=== PATIENT | female | born 1955 | race Hispanic/Latino ===

== ENCOUNTER → 2020-03-08 | Outpatient (CLI) | payer OTHER ==
--- NOTE | 2020-03-27 08:43 | REP ---
DATE: 03/08/2020 LEFT KNEE: HSTORY: Pain after a twisting injury. REPORT: 5 views of the left knee performed. No acute fracture or dislocation is seen. There is mild medial joint space narrowing. There is mild spurring of the superior pole of the patella. There is a moderate joint effusion. Vascular calcifications were seen posteriorly. IMPRESSION: Mild degenerative changes without acute fracture or dislocation. Moderate joint effusion. MTDD
== END ==
LOC: M WUC 18:11
PROVIDERS: ATTEND Nurse Practitioner Family
DX: M25.762 Osteophyte, left knee (principal)

== ENCOUNTER → 2020-10-22 | Outpatient (CLI) | payer BC ==
[~2020-10-22] MED LIST: ISOVUE-300 61% 50ML VIAL As Ordered ONE; LIDOCAINE 1% MDV 20ML VIAL As Ordered ONE; TRIAMCINOLONE ACETONIDE SUSP 40 MG/ML VIAL (J3301) As Ordered ONE
--- NOTE | 2020-10-22 17:13 | REP ---
INDICATION: RT SHOULDER OA W/ PAIN. COMPARISON: None. TECHNIQUE: The procedure was performed under the direct supervision of Dr. Iyer. The benefits and risks including but not limited to pain infection and bleeding and anaphylaxis were explained to the patient and informed consent was obtained. The right glenohumeral joint space was localized using fluoroscopic guidance. The skin was prepped and draped in a sterile fashion. 1% lidocaine was used as a local anesthetic. Using fluoroscopic guidance, and last image hold technology, a 22-gauge spinal needle was inserted and advanced into the joint. 1 ml of Isovue-300 was injected to verify placement. 6 ml of a solution containing less than 6 ml of 1% Xylocaine and 1 mL of Kenalog 40 mg was injected. The needle was then removed. The patient tolerated the procedure well and there were no immediate complications. Less than 6 seconds of fluoro time was utilized for this procedure. FINDINGS: None IMPRESSION: Fluoro guidance for right shoulder injection. <Electronically signed by Shen Hameed > 10/22/20 1605 <Electronically signed by Roger Iyer > 10/22/20 [id number]
== END ==
LOC: M RADPRO 10:50
PROVIDERS: ATTEND Physician Assistant
DX: M19.011 Primary osteoarthritis, right shoulder (principal); M25.511 Pain in right shoulder
CPT/HCPCS: 20610; 77002; J3301; Q9967

== ENCOUNTER 2020-12-09 18:11 | Emergency (ER) | payer BC ==
[~2020-12-09] VITALS: Ht 162.6 cm; Wt 100.9 kg
[2020-12-09] MEDS ORDERED: SUPECAP14 PO (18:32)
[2020-12-09] MEDS ORDERED: A-10CAP2 PO (18:32)
[2020-12-09] MEDS ORDERED: VITA200031 PO (18:32)
[2020-12-09] MEDS ORDERED: JARD1TAB PO (18:32)
[2020-12-09] MEDS ORDERED: LOSA100T50 PO (18:32)
[2020-12-09] MEDS ORDERED: NEXI20CA PO (18:32)
[2020-12-09] MEDS ORDERED: TOPR50TA PO (18:32)
[2020-12-09] MEDS ORDERED: MULT-90 PO (18:32)
[2020-12-09] MEDS ORDERED: LEVO50TA5 PO (18:32)
[2020-12-09] MEDS ORDERED: TRES100I SC (18:32)
[2020-12-09] MEDS ORDERED: CHRO400T4 PO (18:32)
[2020-12-09] MEDS ORDERED: LORA-674 PO (18:32)
[2020-12-09] MEDS ORDERED: TRUL0.5I SC (18:32)
[2020-12-09 20:19] VITALS: BP 150/71
== END 2020-12-09 20:23 | disposition home or self-care (01) ==
LOC: M ED 18:11
DX: S76.311A Strain of muscle, fascia and tendon of the posterior muscle group at thigh level, right thigh, initial encounter (principal); W10.9XXA Fall (on) (from) unspecified stairs and steps, initial encounter; Z79.899 Other long term (current) drug therapy; Z88.1 Allergy status to other antibiotic agents; Z88.8 Allergy status to other drugs, medicaments and biological substances

== ENCOUNTER → 2021-02-04 | Outpatient (CLI) | payer BC, MEDICARE, OTHER ==
[~2021-02-04] MED LIST changes: +A-10CAP2 PO; +CHRO400T4 PO; -ISOVUE-300 61% 50ML VIAL As Ordered ONE; +JARD1TAB PO; +LEVO50TA5 PO; -LIDOCAINE 1% MDV 20ML VIAL As Ordered ONE; +LORA-674 PO; +LOSA100T50 PO; +MULT-90 PO; +NEXI20CA PO; +SUPECAP14 PO; +TOPR50TA PO; +TRES100I SC; -TRIAMCINOLONE ACETONIDE SUSP 40 MG/ML VIAL (J3301) As Ordered ONE; +TRUL0.5I SC; +VITA200031 PO
--- NOTE | 2021-02-04 14:27 | REPMRS ---
Patient History The patient states she has not had a clinical breast exam in over a year. Patient is postmenopausal. No known family history of cancer. No Hormone Replacement Therapy Covid vaccines 07/2020 left arm. 08/2020 left arm. Patient states no breast complaints today. Patient has signed MRS History Sheet. Digital Woman Screen Mammo: February 04, 2021 - Exam #: [id number] Bilateral CC and MLO view(s) were taken. Technologist: RT Davie Prior study comparison: December 20, 2014, bilateral digital mammo screening bilat, performed at Outside Facility. FINDINGS: There are scattered fibroglandular densities. The Volpara volumetric breast density category is:B. There has been no change in the appearance of the mammogram from the prior studies. There is a mild amount of scattered fibroglandular density which is fairly symmetric. There is no interval development of dominant mass, architectural distortion, or grouped microcalcification suggestive of malignancy. 3-D tomosynthesis shows no additional findings. Assessment: BI-RADS/ACR category 1 mammogram. Negative Mammogram. Recommendation Routine screening mammogram of both breasts in 1 year (for women over age 40). This patient's [facility] Lifetime Breast Cancer Risk is estimated at 7.0 %. This mammogram was interpreted with the aid of an FDA-approved computer-aided dectection system. Electronically Signed By: Haseeb Silverio MD 02/04/21 [id number]
== END ==
LOC: M WHC 12:54
PROVIDERS: ATTEND Internal Medicine
DX: Z12.31 Encounter for screening mammogram for malignant neoplasm of breast (principal)

== ENCOUNTER 2021-02-10 09:56 | Outpatient (RCR) | payer BC, MEDICARE | END 2021-02-11 | LOC: M PT 09:56 | PROVIDERS: ATTEND Physician Assistant | DX: M19.011 Primary osteoarthritis, right shoulder (principal); M75.41 Impingement syndrome of right shoulder; S16.1XXA Strain of muscle, fascia and tendon at neck level, initial encounter ==

== ENCOUNTER 2021-03-10 10:45 | Outpatient (RCR) | payer BC, MEDICARE | END 2021-03-13 | LOC: M PT 10:45 | PROVIDERS: ATTEND Physician Assistant | DX: M19.011 Primary osteoarthritis, right shoulder (principal); M75.41 Impingement syndrome of right shoulder; S16.1XXD Strain of muscle, fascia and tendon at neck level, subsequent encounter; W18.30XD Fall on same level, unspecified, subsequent encounter; Y92.009 Unspecified place in unspecified non-institutional (private) residence as the place of occurrence of the external cause ==

== ENCOUNTER → 2021-03-18 | Outpatient (REF) | payer BC, MEDICARE | LOC: M SFHCWAGY 15:08 | PROVIDERS: ATTEND Advanced Practice Midwife | DX: Z12.4 Encounter for screening for malignant neoplasm of cervix (principal) | CPT/HCPCS: 87624; G0123 ==

== ENCOUNTER → 2021-10-01 | Outpatient (CLI) | payer BC, MEDICARE ==
[~2021-10-01] MED LIST changes: +LOSA100T45 PO; -LOSA100T50 PO
== END ==
LOC: M WUC 13:12
PROVIDERS: ATTEND Physician Assistant
DX: S39.012A Strain of muscle, fascia and tendon of lower back, initial encounter (principal)

== ENCOUNTER → 2022-03-02 | Outpatient (CLI) | payer MEDICARE | LOC: M LAB 12:29 | PROVIDERS: ATTEND Physical Medicine & Rehabilitation | DX: M47.892 Other spondylosis, cervical region (principal) ==

== ENCOUNTER → 2022-03-18 | Outpatient (CLI) | payer MEDICARE | LOC: M WHC 10:48 | PROVIDERS: ATTEND Internal Medicine | DX: Z12.31 Encounter for screening mammogram for malignant neoplasm of breast (principal); Z13.820 Encounter for screening for osteoporosis; M85.89 Other specified disorders of bone density and structure, multiple sites ==

== ENCOUNTER 2022-10-20 13:09 | Emergency (ER) | payer MEDICARE ==
[~2022-10-20] VITALS: Ht 162.6 cm; Wt 98.8 kg
[~2022-10-20 13:09] MED LIST changes: -LOSA100T45 PO; +LOSA100T46 PO
[2022-10-20] MEDS ORDERED: METF-838 (13:27)
[2022-10-20] MEDS ORDERED: ROSU5TAB5 (13:27)
[2022-10-20] MEDS ORDERED: HUMA100I5 (13:27)
[2022-10-20] MEDS ORDERED: GABA-1171 (13:27)
[2022-10-20] MEDS ORDERED: BOOSTRIX VACCINE (TETANUS/DIPHTH/ACEL. PERTUSSIS) 0.5ML SYR IM.IMMUN ONE (15:15)
[2022-10-20] MEDS ORDERED: ACETAMINOPHEN 500 MG TAB PO ONE (15:15)
[2022-10-20] MEDS ORDERED: BACI500O8 TOP (16:10)
[2022-10-20 16:14] VITALS: BP 141/76
== END 2022-10-20 16:19 | disposition home or self-care (01) ==
LOC: EDBD 13:09 → M ED 13:09
DX: S00.03XA Contusion of scalp, initial encounter (principal); S50.02XA Contusion of left elbow, initial encounter; S13.4XXA Sprain of ligaments of cervical spine, initial encounter; W01.0XXA Fall on same level from slipping, tripping and stumbling without subsequent striking against object, initial encounter; I10 Essential (primary) hypertension; E11.9 Type 2 diabetes mellitus without complications; E03.9 Hypothyroidism, unspecified; Z88.1 Allergy status to other antibiotic agents; Z88.2 Allergy status to sulfonamides; Z88.6 Allergy status to analgesic agent; Y92.009 Unspecified place in unspecified non-institutional (private) residence as the place of occurrence of the external cause; Z79.4 Long term (current) use of insulin; Z79.811 Long term (current) use of aromatase inhibitors; Z79.810 Long term (current) use of selective estrogen receptor modulators (SERMs); Z79.899 Other long term (current) drug therapy; Z23 Encounter for immunization

== ENCOUNTER → 2022-12-08 | Outpatient (CLI) | payer MEDICARE ==
[~2022-12-08] MED LIST changes: +BACI500O8 TOP; +E-Z-GAS II EFFERVESCENT PACKET (SODIUM BICARB./CITRIC ACID/SIMETHICONE) As Ordered ONE; +E-Z-HD 98% w/w 340GM SUSP BTL As Ordered ONE; +E-Z-PAQUE 96% w/w SUSP 176GM BTL As Ordered ONE; +GABA-1171; +HUMA100I5; +METF-838; +ROSU5TAB5
== END ==
LOC: M RAD 10:02
PROVIDERS: ATTEND Physician Assistant Medical
DX: R13.10 Dysphagia, unspecified (principal)

== ENCOUNTER → 2023-01-06 | Outpatient (REF) | payer MEDICARE, OTHER ==
[~2023-01-06] MED LIST changes: +CVS1CAP2 PO; -E-Z-GAS II EFFERVESCENT PACKET (SODIUM BICARB./CITRIC ACID/SIMETHICONE) As Ordered ONE; -E-Z-HD 98% w/w 340GM SUSP BTL As Ordered ONE; -E-Z-PAQUE 96% w/w SUSP 176GM BTL As Ordered ONE; -GABA-1171; +GABA-1171 PO; +INSUH10VL SC; -METF-838; +METF-838 PO; +METF500T13 PO; +PANT20TA6 PO; +POLY17PO10 PO; -ROSU5TAB5; +ROSU5TAB5 PO; +SYST1SOL4 OU
[2023-01-06 17:05] LABS: APPEARANCE, URINE CLEAR (CLEAR); BACTERIA, URINE AUTO NEGATIVE (NEGATIVE); BILIRUBIN, URINE AUTO NEGATIVE (NEGATIVE); BLOOD, URINE BLOOD NEGATIVE (NEGATIVE); COLOR, URINE STRAW (YELLOW); GLUCOSE, URINE (UA) AUTO 3+ mg/dL (NEGATIVE); KETONE, URINE AUTO NEGATIVE (NEGATIVE); LEUKOCYTE ESTERASE, URINE AUTO NEGATIVE (NEGATIVE); NITRITE, URINE AUTO NEGATIVE (NEGATIVE); PROTEIN, URINE AUTO NEGATIVE (NEGATIVE); RBC, URINE AUTO 0 /HPF (0-3); SPECIFIC GRAVITY URINE AUTO 1.031 (1.002-1.035); SQUAMOUS EPITHELIAL CELL UR AU 0 /HPF (0-6); UROBILINOGEN, URINE AUTO 0.2 mg/dL (0.0-2.0); WBC, URINE AUTO 0 /HPF (0-3)
== END ==
LOC: M LAB REF 16:11
PROVIDERS: ATTEND Internal Medicine
DX: N39.0 Urinary tract infection, site not specified (principal)

== ENCOUNTER → 2023-01-11 | Outpatient (CLI) | payer MEDICARE, OTHER ==
[2023-01-11 12:16] LABS: PLATELET COUNT, AUTOMATED 320 10^3/uL (150-450)
[2023-01-11 12:39] LABS: INR 0.97; PROTHROMBIN TIME 13.1 SECONDS (12.5-14.5)
[2023-01-11 12:40] LABS: PARTIAL THROMBOPLASTIN TIME 27.5 SECONDS (24.8-34.2)
[2023-01-11 12:59] LABS: COLLAGEN EPINEPHRINE 86 SECONDS (74-162)
== END ==
LOC: M LAB 11:44
PROVIDERS: ATTEND Physician Assistant
DX: Z01.818 Encounter for other preprocedural examination (principal)

== ENCOUNTER → 2023-04-20 | Outpatient (CLI) | payer MEDICARE, OTHER ==
[~2023-04-20] MED LIST changes: +ISOVUE-300 61% 100ML VIAL As Ordered ONE; +LIDOCAINE 1% MDV 20ML VIAL As Ordered ONE; +LORA-1041 PO; -LORA-674 PO; +TRIAMCINOLONE ACETONIDE SUSP 40MG/ML 1ML VIAL As Ordered ONE
== END ==
LOC: M RAD 14:16
PROVIDERS: ATTEND Physician Assistant
DX: M16.12 Unilateral primary osteoarthritis, left hip (principal)
CPT/HCPCS: 20610; 77002; J3301; Q9967

== ENCOUNTER → 2023-04-22 | Outpatient (CLI) | payer MEDICARE, OTHER ==
[~2023-04-22] MED LIST changes: -ISOVUE-300 61% 100ML VIAL As Ordered ONE; -LIDOCAINE 1% MDV 20ML VIAL As Ordered ONE; -TRIAMCINOLONE ACETONIDE SUSP 40MG/ML 1ML VIAL As Ordered ONE
== END ==
LOC: M WHC 07:49
PROVIDERS: ATTEND Internal Medicine
DX: Z12.31 Encounter for screening mammogram for malignant neoplasm of breast (principal)

== ENCOUNTER → 2023-08-20 | Outpatient (REF) | payer MEDICARE, OTHER ==
[2023-08-20 19:21] LABS: CREATININE, URINE 71.3 MG/DL
== END ==
LOC: M LAB REF 17:07
PROVIDERS: ATTEND Nurse Practitioner Family
DX: E11.65 Type 2 diabetes mellitus with hyperglycemia (principal)

== ENCOUNTER 2023-09-09 00:12 | Emergency (ER) | payer MEDICARE, OTHER ==
[~2023-09-09] VITALS: Ht 162.6 cm; Wt 95.7 kg
[2023-09-09 00:47] LABS: BASO # 0.1 10^3/uL (0.0-0.2); BASO % 0.5 % (0.0-1.0); EOS # 1.7 10^3/uL (0.0-0.5); EOS % 12.8 % (0.0-3.0); HEMATOCRIT 43.4 % (36.0-47.0); HEMOGLOBIN 14.3 g/dl (12.0-15.5); LYMPH # 2.7 10^3/uL (1.5-5.0); LYMPH % 19.8 % (24.0-44.0); MEAN CORPUSCULAR HEMOGLOBIN 30.5 pg (27.0-33.0); MEAN CORPUSCULAR HGB CONC 32.9 g/dl (32.0-36.5); MEAN CORPUSCULAR VOLUME 92.5 fl (80.0-96.0); MONO # 0.8 10^3/uL (0.0-0.8); MONO % 5.9 % (2.0-8.0); NEUTROPHILS # 8.2 10^3/uL (1.5-8.5); NEUTROPHILS % 60.7 % (36.0-66.0); PLATELET COUNT, AUTOMATED 330 10^3/uL (150-450); RED BLOOD COUNT 4.69 10^6/uL (4.00-5.40); WHITE BLOOD COUNT 13.6 10^3/uL (4.0-10.0)
[2023-09-09 01:11] LABS: CK-MB VALUE MASS < 1.0 NG/ML (<3.6)
[2023-09-09 01:12] LABS: LIPASE 45 U/L (12-53)
[2023-09-09 01:14] LABS: ALBUMIN 3.8 G/DL (3.2-5.2); ALKALINE PHOSPHATASE 92 U/L (46-116); ALT/SGPT 14 U/L (7.0-40); AST/SGOT 15 U/L (<34); BILIRUBIN,DIRECT < 0.1 MG/DL (<0.4); BILIRUBIN,TOTAL 0.2 MG/DL (0.3-1.2); BLOOD UREA NITROGEN 28 MG/DL (9-23); CALCIUM LEVEL 10.3 MG/DL (8.3-10.6); CARBON DIOXIDE LEVEL 28 MMOL/L (20-31); CHLORIDE LEVEL 105 MMOL/L (98-107); CPK CREATINE PHOSPHOKINASE 153 U/L (34-145); CREATININE FOR GFR 0.93 MG/DL (0.55-1.30); GLOMERULAR FILTRATION RATE > 60.0 (>45); GLUCOSE, FASTING 150 MG/DL (74-106); MB/CK RELATIVE INDEX 0.65 (< OR =4); POTASSIUM SERUM 4.2 MMOL/L (3.5-5.1); SODIUM LEVEL 140 MMOL/L (136-145); TOTAL PROTEIN 6.9 G/DL (5.7-8.2)
[2023-09-09] MEDS ORDERED: ISOVUE-370 76% 100ML VIAL As Ordered ONE (01:49)
[2023-09-09] MEDS: KETOROLAC 30 MG/ML 1ML VIAL IV ONE (01:55)
[2023-09-09] MEDS: MAALOX 30 ML SUSP *UDC PO ONE (01:55)
[2023-09-09 03:00] LABS: CK-MB VALUE MASS 1.1 NG/ML (<3.6)
[2023-09-09 03:01] LABS: MB/CK RELATIVE INDEX 0.94 (< OR =4)
[2023-09-09] MEDS ORDERED: NAPR-837 PO (03:15)
[2023-09-09 03:21] VITALS: BP 133/62; TEMP 97.3; O2SAT 95
== END 2023-09-09 03:31 | disposition home or self-care (01) ==
LOC: M ED 00:12
DX: R10.13 Epigastric pain (principal); I49.1 Atrial premature depolarization; E11.9 Type 2 diabetes mellitus without complications; I10 Essential (primary) hypertension; K21.9 Gastro-esophageal reflux disease without esophagitis; E03.9 Hypothyroidism, unspecified; Z88.1 Allergy status to other antibiotic agents; Z88.5 Allergy status to narcotic agent; Z88.8 Allergy status to other drugs, medicaments and biological substances; Z91.040 Latex allergy status; Z79.891 Long term (current) use of opiate analgesic; Z79.4 Long term (current) use of insulin; Z79.811 Long term (current) use of aromatase inhibitors; Z79.899 Other long term (current) drug therapy
CPT/HCPCS: 71045; 71275; 74177; 80048; 80076; 82550; 82553; 83690; 84484; 85025; 93005; 93041; 94760; 96374; 99285; J1885; Q9967

== ENCOUNTER → 2023-11-05 | Outpatient (CLI) | payer MEDICARE, OTHER ==
[~2023-11-05] MED LIST changes: +NAPR-837 PO; +ROSU5TAB40 PO; -ROSU5TAB5 PO
== END ==
LOC: M SOG 08:07
PROVIDERS: ATTEND Physician Assistant
DX: M25.561 Pain in right knee (principal)

== ENCOUNTER → 2023-12-06 | Outpatient (CLI) | payer MEDICARE, OTHER | LOC: M SOG 13:28 | PROVIDERS: ATTEND Physician Assistant | DX: M25.562 Pain in left knee (principal) ==

== ENCOUNTER 2024-02-29 18:52 | Emergency (ER) | payer MEDICARE, OTHER ==
[~2024-02-29] VITALS: Ht 162.6 cm; Wt 93.1 kg
[~2024-02-29 18:52] MED LIST changes: +DULO1CAP4 PO; +JARD1TAB3 PO; +LEVO75TA4 PO; +MYRB50TA PO; +SEMA1PEN2 SC; +XIID5DRO OU
[2024-02-29 19:43] LABS: BASO # 0.1 10^3/uL (0.0-0.2); BASO % 0.8 % (0.0-1.0); EOS # 0.4 10^3/uL (0.0-0.5); HEMOGLOBIN 14.1 g/dl (12.0-15.5); LYMPH # 3.3 10^3/uL (1.5-5.0); LYMPH % 27.7 % (24.0-44.0); MEAN CORPUSCULAR HEMOGLOBIN 30.5 pg (27.0-33.0); MEAN CORPUSCULAR HGB CONC 32.8 g/dl (32.0-36.5); MEAN CORPUSCULAR VOLUME 92.9 fl (80.0-96.0); MONO # 0.8 10^3/uL (0.0-0.8); MONO % 6.4 % (2.0-8.0); NEUTROPHILS # 7.3 10^3/uL (1.5-8.5); NEUTROPHILS % 61.7 % (36.0-66.0); PLATELET COUNT, AUTOMATED 368 10^3/uL (150-450); RED BLOOD COUNT 4.63 10^6/uL (4.00-5.40); WHITE BLOOD COUNT 11.8 10^3/uL (4.0-10.0)
[2024-02-29 20:15] LABS: LIPASE 55 U/L (12-53)
[2024-02-29 20:17] LABS: ALBUMIN 3.8 G/DL (3.2-5.2); ALKALINE PHOSPHATASE 87 U/L (46-116); ALT/SGPT 18 U/L (7.0-40); AST/SGOT 16 U/L (<34); BILIRUBIN,DIRECT 0.1 MG/DL (<0.4); BILIRUBIN,TOTAL 0.3 MG/DL (0.3-1.2); BLOOD UREA NITROGEN 18 MG/DL (9-23); CALCIUM LEVEL 10.4 MG/DL (8.3-10.6); CARBON DIOXIDE LEVEL 26 MMOL/L (20-31); CHLORIDE LEVEL 106 MMOL/L (98-107); CREATININE FOR GFR 0.72 MG/DL (0.55-1.30); GLOMERULAR FILTRATION RATE > 60.0 (>45); GLUCOSE, FASTING 206 MG/DL (74-106); POTASSIUM SERUM 4.8 MMOL/L (3.5-5.1); SODIUM LEVEL 137 MMOL/L (136-145); TOTAL PROTEIN 6.9 G/DL (5.7-8.2)
[2024-02-29] MEDS: ONDANSETRON 4MG 2ML VIAL IV ONE (22:22)
[2024-02-29] MEDS: NS 1,000 ML IV ONE (22:22)
[2024-02-29] MEDS: KETOROLAC 30 MG/ML 1ML VIAL IV ONE (22:22)
[2024-02-29] MEDS ORDERED: MYRB50TA (22:34)
[2024-02-29] MEDS ORDERED: LEVO75TA4 (22:34)
[2024-02-29] MEDS ORDERED: GABA-1171 (22:34)
[2024-02-29] MEDS ORDERED: XIID5DRO (22:34)
[2024-02-29] MEDS ORDERED: TRES1INJ2 (22:34)
[2024-02-29] MEDS ORDERED: LOSA100T46 (22:34)
[2024-02-29] MEDS ORDERED: SEMA1PEN2 (22:34)
[2024-02-29] MEDS ORDERED: JARD1TAB3 (22:34)
[2024-02-29] MEDS ORDERED: ROSU5TAB40 (22:34)
[2024-02-29] MEDS ORDERED: PANT20TA6 (22:34)
[2024-02-29] MEDS ORDERED: METO1TAB7 (22:34)
[2024-02-29] MEDS ORDERED: DULO1CAP4 (22:34)
[2024-02-29] MEDS ORDERED: METF-838 (22:34)
[2024-02-29 22:50] VITALS: BP 138/68; TEMP 96.9; O2SAT 98
[2024-02-29] MEDS ORDERED: IBUP-1022 PO (23:16)
[2024-02-29] MEDS ORDERED: METH-1164 PO (23:16)
== END 2024-02-29 23:30 | disposition home or self-care (01) ==
LOC: MERGE 18:52 → M ED 18:52
DX: M62.830 Muscle spasm of back (principal); M54.50 Low back pain, unspecified; E78.5 Hyperlipidemia, unspecified; I10 Essential (primary) hypertension; K21.9 Gastro-esophageal reflux disease without esophagitis; E11.9 Type 2 diabetes mellitus without complications; N80.00 Endometriosis of the uterus, unspecified; Z87.442 Personal history of urinary calculi; Z79.4 Long term (current) use of insulin; Z79.811 Long term (current) use of aromatase inhibitors; Z79.899 Other long term (current) drug therapy
CPT/HCPCS: 74176; 80048; 80076; 81001; 83690; 85025; 93041; 96361; 96374; 99284; J1885; J2405

== ENCOUNTER → 2024-03-09 | Outpatient (CLI) | payer MEDICARE, OTHER ==
[~2024-03-09] MED LIST changes: +DULO1CAP4; +GABA-1171; +IBUP-1022 PO; +JARD1TAB3; +LEVO75TA4; +LOSA100T46; +METF-838; +METH-1164 PO; +METO1TAB7; +MYRB50TA; +PANT20TA6; +ROSU5TAB40; +SEMA1PEN2; +TRES1INJ2; +XIID5DRO
== END ==
LOC: M SOG 07:19
PROVIDERS: ATTEND Physician Assistant
DX: M25.551 Pain in right hip (principal)

== ENCOUNTER 2024-03-16 12:26 | Day surgery (SDC) | payer MEDICARE, OTHER ==
[~2024-03-16] VITALS: Ht 162.6 cm; Wt 91.1 kg
[~2024-03-16 12:26] MED LIST changes: +NS 1,000 ML IV ONE
[2024-03-16] MEDS ORDERED: LIDOCAINE 2% 100MG/5ML SDV (FOR ANES.) As Ordered ONE (16:29)
[2024-03-16] MEDS ORDERED: propofoL 200 MG/20 ML VIAL As Ordered ONE (16:29)
[2024-03-16 16:37] VITALS: BP 145/68; TEMP 97.7; O2SAT 98
== END 2024-03-16 16:48 | disposition home or self-care (01) ==
LOC: M OPP 12:26
PROVIDERS: ATTEND Internal Medicine Gastroenterology
DX: R10.13 Epigastric pain (principal); K44.9 Diaphragmatic hernia without obstruction or gangrene; K21.9 Gastro-esophageal reflux disease without esophagitis; E11.40 Type 2 diabetes mellitus with diabetic neuropathy, unspecified; I10 Essential (primary) hypertension; E78.00 Pure hypercholesterolemia, unspecified; E03.9 Hypothyroidism, unspecified; R32 Unspecified urinary incontinence; Z79.899 Other long term (current) drug therapy; Z87.19 Personal history of other diseases of the digestive system; Z79.890 Hormone replacement therapy; Z79.85 Long-term (current) use of injectable non-insulin antidiabetic drugs; Z79.84 Long term (current) use of oral hypoglycemic drugs; Z79.4 Long term (current) use of insulin; Z88.8 Allergy status to other drugs, medicaments and biological substances; Z88.0 Allergy status to penicillin; Z88.1 Allergy status to other antibiotic agents; Z91.040 Latex allergy status

== ENCOUNTER → 2024-04-13 | Outpatient (CLI) | payer MEDICARE, OTHER ==
[~2024-04-13] MED LIST changes: -NS 1,000 ML IV ONE
== END ==
LOC: M RAD 08:33
PROVIDERS: ATTEND Physician Assistant
DX: M54.41 Lumbago with sciatica, right side (principal)

== ENCOUNTER → 2024-06-23 | Outpatient (CLI) | payer MEDICARE, OTHER ==
[~2024-06-23] MED LIST changes: -ROSU5TAB40; -ROSU5TAB40 PO; +ROSU5TAB49; +ROSU5TAB49 PO
== END ==
LOC: M WHC 12:20
PROVIDERS: ATTEND Internal Medicine
DX: Z12.31 Encounter for screening mammogram for malignant neoplasm of breast (principal); Z13.820 Encounter for screening for osteoporosis; Z78.0 Asymptomatic menopausal state

== ENCOUNTER → 2024-08-11 | Outpatient (CLI) | payer MEDICARE, OTHER ==
[2024-08-11 14:00] LABS: BLOOD UREA NITROGEN 19 MG/DL (9-23); CREATININE FOR GFR 0.76 MG/DL (0.55-1.30); GLOMERULAR FILTRATION RATE > 60.0 (>45)
== END ==
LOC: M PLALAB 11:33
PROVIDERS: ATTEND Psychiatry & Neurology Neurology
DX: I10 Essential (primary) hypertension (principal)

== ENCOUNTER 2024-09-25 11:15 | Emergency (ER) | payer MEDICARE, OTHER ==
[~2024-09-25] VITALS: Ht 162.6 cm; Wt 97.8 kg
[2024-09-25 11:19] VITALS: BP 155/70; TEMP 96.6; O2SAT 100
== END 2024-09-25 13:09 | disposition left against medical advice (07) ==
LOC: M ED 11:15
DX: Z53.21 Procedure and treatment not carried out due to patient leaving prior to being seen by health care provider (principal)

== ENCOUNTER 2025-01-08 07:17 | Day surgery (SDC) | payer MEDICARE, OTHER ==
[~2025-01-08] VITALS: Ht 162.6 cm; Wt 98.9 kg
[~2025-01-08 07:17] MED LIST changes: +ACETAMINOPHEN 1000MG/100ML IV BAG As Ordered ONE; +GABA-1172 PO; +GLYCOPYRROLATE INJ 0.2 MG/ML 2 ML VIAL As Ordered ONE; +KETOROLAC 30 MG/ML 1 ML VIAL As Ordered ONE; +LIDOCAINE 2% 100 MG/5 ML SDV (FOR ANES.) As Ordered ONE; +LIFI1DRO4; +LIFI1DRO4 OU; +MIDAZOLAM INJ 2 MG/2 ML VIAL As Ordered ONE; +ONDANSETRON 4MG 2ML VIAL As Ordered ONE; -XIID5DRO; -XIID5DRO OU; +dexAMETHasone 4 MG/ML 1 ML VIAL As Ordered ONE
[2025-01-08] MEDS ORDERED: LR 1,000 ML IV SCH (08:00)
[2025-01-08] MEDS ORDERED: ROCURONIUM BROMIDE 50MG/5ML VIAL As Ordered ONE (08:55)
[2025-01-08] MEDS: CLINDAMYCIN 600 MG/50 ML PREMIX BAG As Ordered ONE (09:30)
[2025-01-08] MEDS: CLINDAMYCIN 900 MG/50 ML PREMIX BAG As Ordered ONE (09:40)
[2025-01-08] MEDS ORDERED: ONDANSETRON 4MG 2ML VIAL IV PRN (10:15)
[2025-01-08] MEDS: LIDOCAINE W/EPINEPHrine 1% 20 ML VIAL As Ordered ONE (10:15)
[2025-01-08] MEDS ORDERED: PERC5TAB12 PO (10:36)
[2025-01-08 11:30] VITALS: BP 147/66; TEMP 97.1; O2SAT 97
== END 2025-01-08 11:57 | disposition home or self-care (01) ==
LOC: M SDC 07:17
PROVIDERS: ATTEND Orthopaedic Surgery Hand Surgery
DX: G56.02 Carpal tunnel syndrome, left upper limb (principal); I10 Essential (primary) hypertension; E78.5 Hyperlipidemia, unspecified; E03.9 Hypothyroidism, unspecified; K57.92 Diverticulitis of intestine, part unspecified, without perforation or abscess without bleeding; K21.9 Gastro-esophageal reflux disease without esophagitis; G62.9 Polyneuropathy, unspecified; Z79.899 Other long term (current) drug therapy; Z88.1 Allergy status to other antibiotic agents; Z91.040 Latex allergy status; Z88.8 Allergy status to other drugs, medicaments and biological substances
CPT/HCPCS: 64721; J0131; J0737; J1100; J1596; J1885; J2250; J2405; J3010

== ENCOUNTER → 2025-02-06 | Outpatient (CLI) | payer MEDICARE, OTHER ==
[~2025-02-06] MED LIST changes: -ACETAMINOPHEN 1000MG/100ML IV BAG As Ordered ONE; -GLYCOPYRROLATE INJ 0.2 MG/ML 2 ML VIAL As Ordered ONE; -IBUP-1022 PO; +IBUP600T42 PO; -KETOROLAC 30 MG/ML 1 ML VIAL As Ordered ONE; -LIDOCAINE 2% 100 MG/5 ML SDV (FOR ANES.) As Ordered ONE; -MIDAZOLAM INJ 2 MG/2 ML VIAL As Ordered ONE; -ONDANSETRON 4MG 2ML VIAL As Ordered ONE; +PERC5TAB12 PO; -dexAMETHasone 4 MG/ML 1 ML VIAL As Ordered ONE
== END ==
LOC: M SOG 06:54
PROVIDERS: ATTEND Physician Assistant
DX: M25.551 Pain in right hip (principal)

== ENCOUNTER 2025-03-20 12:18 | Day surgery (SDC) | payer MEDICARE, OTHER ==
[~2025-03-20] VITALS: Ht 162.6 cm; Wt 104.8 kg
[~2025-03-20 12:18] MED LIST changes: +LACT20EL PO; +LOTI10DR OU; +MELO15TA28 PO
[2025-03-20] MEDS ORDERED: GLUCAGON INJ 1 MG VIAL SC PRN (13:10)
[2025-03-20] MEDS ORDERED: DEXTROSE 50% 50 ML SYRINGE IV PRN (13:10)
[2025-03-20] MEDS ORDERED: GLUCOSE 4 GM CHEW PO PRN (13:10)
[2025-03-20] MEDS: INSULIN LISPRO (NovoLOG) PER UNIT SC PRN (13:15)
[2025-03-20] MEDS ORDERED: LIDOCAINE 2% 100 MG/5 ML SDV (FOR ANES.) As Ordered ONE (15:05)
[2025-03-20 15:13] VITALS: TEMP 98.2
[2025-03-20 15:40] VITALS: BP 135/61; O2SAT 99
== END 2025-03-20 15:47 | disposition home or self-care (01) ==
LOC: M OPP 12:18
PROVIDERS: ATTEND Internal Medicine Gastroenterology
DX: K44.9 Diaphragmatic hernia without obstruction or gangrene (principal); R11.0 Nausea; R10.13 Epigastric pain; Z88.8 Allergy status to other drugs, medicaments and biological substances; Z91.040 Latex allergy status; Z79.84 Long term (current) use of oral hypoglycemic drugs; Z79.4 Long term (current) use of insulin; Z79.85 Long-term (current) use of injectable non-insulin antidiabetic drugs; Z79.899 Other long term (current) drug therapy
CPT/HCPCS: 43235; J1815

== ENCOUNTER 2025-04-16 07:37 | Day surgery (SDC) | payer MEDICARE, OTHER ==
[~2025-04-16] VITALS: Ht 162.6 cm; Wt 102.9 kg
[2025-04-16] MEDS ORDERED: MIDAZOLAM INJ 2 MG/2 ML VIAL As Ordered ONE (07:40)
[2025-04-16] MEDS ORDERED: dexAMETHasone 4 MG/ML 1 ML VIAL As Ordered ONE (07:40)
[2025-04-16] MEDS ORDERED: ONDANSETRON 4MG/2ML VIAL As Ordered ONE (07:40)
[2025-04-16] MEDS ORDERED: LIDOCAINE 2% 100 MG/5 ML SDV (FOR ANES.) As Ordered ONE (07:41)
[2025-04-16] MEDS ORDERED: dexmedeTOMIDine (4 MCG/ML) 200 MCG/50 ML BTL As Ordered ONE (07:41)
[2025-04-16] MEDS ORDERED: KETOROLAC 30 MG/ML 1 ML VIAL As Ordered ONE (07:41)
[2025-04-16] MEDS: CLINDAMYCIN 900 MG/50 ML PREMIX BAG As Ordered ONE (07:49)
[2025-04-16] MEDS ORDERED: LR 1,000 ML IV SCH ×2 (07:55→09:40)
[2025-04-16] MEDS ORDERED: DEXTROSE 50% 50 ML SYRINGE IV PRN (08:15)
[2025-04-16] MEDS ORDERED: ACETAMINOPHEN 1000MG/100ML IV BAG As Ordered ONE (08:15)
[2025-04-16] MEDS ORDERED: GLUCOSE 4 GM CHEW PO PRN (08:15)
[2025-04-16] MEDS ORDERED: GLUCAGON INJ 1 MG VIAL SC PRN (08:15)
[2025-04-16] MEDS: INSULIN LISPRO (NovoLOG) PER UNIT SC PRN (08:20)
[2025-04-16] MEDS: CLINDAMYCIN 600 MG/50 ML PREMIX BAG As Ordered ONE (08:47)
[2025-04-16] MEDS ORDERED: HYDROMORPHONE HCL 0.5 MG/0.5 ML SYRINGE IV PRN (09:40)
[2025-04-16] MEDS ORDERED: ONDANSETRON 4MG/2ML VIAL IV PRN (09:40)
[2025-04-16 10:46] VITALS: BP 130/63; TEMP 97.2; O2SAT 96
== END 2025-04-16 10:54 | disposition home or self-care (01) ==
LOC: M SDC 07:37
PROVIDERS: ATTEND Orthopaedic Surgery Hand Surgery
DX: G56.01 Carpal tunnel syndrome, right upper limb (principal); E11.40 Type 2 diabetes mellitus with diabetic neuropathy, unspecified; I10 Essential (primary) hypertension; E78.00 Pure hypercholesterolemia, unspecified; E03.9 Hypothyroidism, unspecified; K21.9 Gastro-esophageal reflux disease without esophagitis; R32 Unspecified urinary incontinence; Z79.899 Other long term (current) drug therapy; Z79.84 Long term (current) use of oral hypoglycemic drugs; Z79.4 Long term (current) use of insulin; Z79.85 Long-term (current) use of injectable non-insulin antidiabetic drugs; Z79.890 Hormone replacement therapy; Z88.8 Allergy status to other drugs, medicaments and biological substances; Z88.1 Allergy status to other antibiotic agents; Z91.040 Latex allergy status
CPT/HCPCS: 64721; 64999; C1762; J0131; J0665; J0737; J1100; J1815; J1885; J2250; J2405; J3010